=== PATIENT | female | born 1995 | race Two or more races ===

== ENCOUNTER 2016-08-21 22:22 | Emergency (ER) | payer MEDICAID ==
[2016-08-21 22:40] VITALS: RESP 18
[2016-08-21] MEDS ORDERED: IBUPROFEN 600 MG TAB PO ONE (22:46)
[2016-08-21] MEDS ORDERED: IBUPROFEN SUSP 100 MG/5 ML UDCUP ONE (22:51)
--- NOTE | 2016-08-21 22:51 | EDPHY ---
H & P Stated Complaint: STUMBLE DOWN 2 STAIRS, ROLLED RIGHT ANKLE, 2200 Source: Patient Exam Limitations: No limitations - Personal History LMP (Females 10-55): 15-21 Days Ago Current Tetanus/Diphtheria Vaccine: Unsure - Medical/Surgical History Hx Asthma: No Hx Chronic Respiratory Disease: No Hx Diabetes: No Hx Cardiac Disease: No Hx Renal Disease: No Hx Cirrhosis: No Hx Alcoholism: No Hx HIV/AIDS: No Hx Splenectomy or Spleen Trauma: No Other PMH: denies - Social History Smoking Status: Never smoked HPI/ROS: CHIEF COMPLAINT: Ankle sprain HISTORY OF PRESENT ILLNESS: Patient was walking down a set of stairs within the past 30 minutes when she slipped. She says that she tripped and her right ankle inverted. She noted a sudden onset of pain over both the lateral and medial malleoli. It is moderate to severe pain. Difficulty bearing weight and ambulating due to this. It radiates into the foot. There is no bony tenderness of the heel with proximal fibula. No injury to the ipsilateral hip. No head or neck injury. No chest or back injury. Pain is minimal at rest. No numbness or tingling. No other associated complaints or modifying factors. PRIOR ORTHO INJURIES: Previous ankle sprains ESTABLISHED ORTHOPEDIST: None REVIEW OF SYSTEMS: Ten systems reviewed and are negative unless otherwise noted in the HPI EXAMINATION General Appearance: Alert, no distress Cardiovascular: Pulses normal throughout. Symmetric DP pulses at 2+. Brisk cap refill Neurological: A&O, sensory symmetric, strength symmetric. Normal proprioception of the great toe. Skin: Warm and dry, no rash. No ecchymosis. No lacerations or abrasions. Extremities: Tenderness to palpation of the right ankle over the medial and lateral malleoli. There is no crepitus or instability of the ankle mortise. No midfoot tenderness. No calcaneal tenderness. No tenderness of the proximal fibula. Range of motion is intact but painful. Neurovascular intact distal to the area of pain. Psychiatric: Mood and affect normal DIFFERENTIAL DIAGNOSES: Including but not limited to sprain, fracture, dislocation, fracture dislocation , hematoma, contusion MDM: 10:48 p.m. Acute right ankle sprain. No outward signs of trauma. She is neurovascular intact. X-ray of the ankle has been ordered due to difficulty weight-bearing. 11:00 p.m. X-ray has been interpreted as no acute abnormality. Treat her for ankle sprain. She is neurovascular intact. I will place her in an air cast. She is weight-bearing as tolerated. Advance her activity slowly. Follow up with Orthopedics for definitive care. Return here for worsening pain, numbness, tingling or weakness. She is comfortable with this plan and discharged home stable condition. ED Precautions: Worsening pain. Erythema, edema, cyanosis, pallor, paresthesia or anesthesia. SUPERVISION: This patient was independently evaluated without direct examination by the attending physician. Case was discussed with attending physician. (Hunter Hsieh) Constitutional: Initial Vital Signs Temperature (C) 36.7 C 08/21/16 22:37 Heart Rate 78 08/21/16 22:37 Respiratory Rate 18 08/21/16 22:37 Blood Pressure 119/63 08/21/16 22:37 O2 Sat (%) 99 08/21/16 22:37 O2 Delivery Mode Room Air Allergies/Adverse Reactions: No Known Allergies Allergy (Unverified 08/21/16 22:37) Home Medications: Medication Instructions Recorded Ibuprofen 600 mg PO Q8 PRN #15 tablet 08/21/16 Medical Decision Making - Diagnostics Imaging Results: Imaging Impressions Ankle X-Ray 08/21/16 22:46 Impression: There is no acute osseous abnormality identified. Other Provider: PHYSICIAN DOCUMENTATION: The patient was evaluated and managed by the Physician Adult Daycare Coordinator. My co- signature indicates that I have reviewed this chart and I agree with the findings and plan of care as documented. I am the secondary supervising physician. (Lima Mueller) - Data Points Medications Given: Discontinued Medications Ibuprofen (Motrin) 600 mg PO EDNOW ONE Stop: 08/21/16 22:47 Last Admin: 08/21/16 22:56 Dose: Not Given Ibuprofen (Motrin Oral Solution) 600 mg PO EDNOW ONE Stop: 08/21/16 22:56 Last Admin: 08/21/16 22:56 Dose: 600 mg Departure - Departure Disposition: Home, Routine, Self-Care Clinical Impression: Ankle sprain Qualifiers: Encounter type: initial encounter Involved ligament of ankle: unspecified ligament Laterality: right Qualified Code(s): S93.401A - Sprain of unspecified ligament of right ankle, initial encounter Condition: Good Instructions: Ankle Sprain (ED) Additional Instructions: 1. Weightbearing as tolerated 2. Ibuprofen [id number] as needed every 8 hours for pain or swelling 3. Return here for worsening pain, numbness, tingling or weakness Four. Follow up with Orthopedics for definitive care Referrals: [facility], [Other] - As per Instructions Wyatt Murguia MD [Medical Doctor] - As per Instructions Stand Alone Forms: Work Excuse Prescriptions: Ibuprofen 600 mg PO Q8 PRN #15 tablet PRN Reason: Pain, Mild
[2016-08-21] MEDS ORDERED: IBUPROFEN SUSP 100 MG/5 ML UDCUP PO ONE (22:55)
[2016-08-21 23:19] VITALS: BP 116/62; PULSE 76; TEMP 98.2; O2SAT 96
== END 2016-08-21 23:19 | disposition home or self-care (01) ==
DX: S93.401A Sprain of unspecified ligament of right ankle, initial encounter (principal); W18.40XA Slipping, tripping and stumbling without falling, unspecified, initial encounter; Y99.8 Other external cause status; Y93.01 Activity, walking, marching and hiking
CPT/HCPCS: L4350

== ENCOUNTER 2017-01-31 17:56 | Emergency (ER) | payer MEDICAID ==
[2017-01-31 18:23] VITALS: RESP 16; O2SAT 97
--- NOTE | 2017-01-31 19:23 | EDPHY ---
HPI/HX/ROS/PE/MDM Narrative: CHIEF COMPLAINT: Right wrist pain. HPI: This patient is a 21 year old female complaining of right wrist pain ongoing since November. 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 She denies any specific traumatic event. She has tried home treatment with Tylenol and Icy Hot topical cream with no relief, and feels her pain is increasing. Yesterday, her wrist and thumb became more painful, and she obtained a splint. She feels she is not able to complete her work duties adequately due to pain. She has no further complaints. REVIEW OF SYSTEMS: Gen: No fever, no chills PMH: Denies. SOCIAL HISTORY: Works as zoo keeper. Friend at bedside. Single. PHYSICAL EXAM: General: Patient is alert, in no acute distress. Right upper extremity: Tenderness along base of thumb. Neuro: Oriented x3. Normal motor function. Normal sensory function. ED Course: 21 y/o female presents with right wrist pain ongoing since November. Exam reveals mild tenderness to the right base of her thumb. Plan for x-ray right hand/wrist. Reviewed x-ray, negative for acute osseous abnormalities. Suspect tendonitis as patient denies any specific traumatic event. I discussed use of splint that immobilizes the thumb. The patient states her splint will suffice and understands she needs to avoid using her thumb. She requests a two day work excuse - I will provide a note for limited duty. Plan to discharge home in good condition. Referral to hand specialist provided. The patient is comfortable with this plan. - Data Points Imaging Results: Imaging Impressions Wrist X-Ray 01/31/17 18:38 Impression: No evidence for acute osseous abnormality right wrist. Imaging: I viewed and interpreted images myself General Time Seen by Provider: 01/31/17 18:38 Initial Vital Signs: Initial Vital Signs Temperature (C) 36.9 C 01/31/17 18:10 Heart Rate 70 01/31/17 18:10 Respiratory Rate 16 01/31/17 18:10 Blood Pressure 118/70 01/31/17 18:10 O2 Sat (%) 97 01/31/17 18:10 O2 Delivery Mode Room Air Allergies/Adverse Reactions: No Known Allergies Allergy (Verified 01/31/17 18:19) Home Medications: Medication Instructions Recorded NK [No Known Home Meds] 01/31/17 Departure - Departure Disposition: Home, Routine, Self-Care Clinical Impression: Wrist pain, right Condition: Good Instructions: Wrist Injury (ED) Additional Instructions: Rest, ice, elevation. Follow up with a hand specialist within one week if pain persists. Return to the emergency department for worsening pain, swelling, numbness, weakness or other concerns. Wear splint for comfort. Referrals: Anderson Maldonado MD [Medical Doctor] - As per Instructions Stand Alone Forms: Work Limited Duty
[2017-01-31 19:33] VITALS: BP 112/70; PULSE 72; TEMP 98.6
== END 2017-01-31 19:36 | disposition home or self-care (01) ==
DX: M25.531 Pain in right wrist (principal)

== ENCOUNTER 2018-01-14 00:12 | Emergency (ER) | payer MEDICAID ==
[2018-01-14 00:17] VITALS: BP 113/73
--- NOTE | 2018-01-14 00:26 | EDPHY ---
H & P Time Seen by Provider: 01/14/18 00:20 HPI/ROS: CHIEF COMPLAINT: "I think my toe is infected" HISTORY OF PRESENT ILLNESS: 22-year-old immunocompetent female seen the ER 4 days ago after she sustained skin avulsion to her left great toe when she was wearing sandals side and an area of skin scraped against the ground. Skin was debrided. 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 When she got off work tonight she was experiencing left great toe pain, concerned that the area may be infected. She denies: Lymphangitic streaking skin, fever, chills PHYSICAL EXAM (Prior to examination, patient consented to physical exam, hands were washed and my usual and customary physical exam procedures followed) 1) GENERAL: Well-developed, well-nourished, alert and oriented. Appears to be in no acute distress. 2) HEAD: Normocephalic 3) HEENT: sclera anicteric 4) LUNGS: Breathing comfortably. 5) SKIN: Left great toe: Granulating tissue with no signs of infection, no erythema, no fetid odor, no drainage, no lymphangitic streaking, soft compartments. No crepitus. 6) MUSCULOSKELETAL: DP PT pulses present and brisk. Normal coloration throughout. Normal temperature throughout. Smoking Status: Never smoked Constitutional: Initial Vital Signs Temperature (C) 36.9 C 01/14/18 00:13 Heart Rate 77 01/14/18 00:13 Respiratory Rate 16 01/14/18 00:13 Blood Pressure 113/73 01/14/18 00:13 O2 Sat (%) 99 01/14/18 00:13 O2 Delivery Mode Room Air Allergies/Adverse Reactions: No Known Allergies Allergy (Verified 01/14/18 00:17) Home Medications: Medication Instructions Recorded NK [No Known Home Meds] 01/31/17 MDM/Departure - MDM ED Course/Re-evaluation: This patient's wound is not infected this time. I Suspect that the pain to this area is more likely secondary to her standing on her feet and due to dependent etiology. No indication for antibiotic initiation at this time. My usual and customary wound precautions and orthopedic precautions instructions provided. She feels comfortable being discharged. - Depart Disposition: Home, Routine, Self-Care Clinical Impression: Skin avulsion Condition: Good Instructions: Skin Avulsion (ED) Additional Instructions: Return to the ER if you develop redness, swelling, discharge, warmth to the wound, red streaks going up your leg, or any other symptoms that concern you. Keep year foot elevated above the level of your pelvis Referrals: [facility],. [Clinic] - 2-3 days, call for appt.
== END 2018-01-14 00:45 | disposition home or self-care (01) ==
DX: S90.412D Abrasion, left great toe, subsequent encounter (principal)